=== PATIENT | female | born 2000 | race Caucasian/White ===

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

== ENCOUNTER 2020-04-23 04:03 | Inpatient (IN) | payer MEDICAID, OTHER ==
[2020-04-23] MEDS ORDERED: Oxytocin 10 Units/1 ML SDV IM ONE (04:07)
[2020-04-23] MEDS ORDERED: Carboprost Tromethamine 250 MCG/1 ML Amp IM PRN (06:33)
[2020-04-23] MEDS ORDERED: Misoprostol 400 MCG (4 X 100 MCG TAB) RECTAL PRN (06:33)
[2020-04-23] MEDS ORDERED: Methylergonovine 0.2 MG Tab PO PRN (06:33)
[2020-04-23] MEDS ORDERED: Ibuprofen 800 MG Tab PO PRN (06:33)
[2020-04-23] MEDS ORDERED: Benzocaine/Menthol 20%-0.5% Spray 56 GM Canister TOP PRN (06:33)
[2020-04-23] MEDS ORDERED: Ondansetron 4 MG Tab.DIS PO PRN (06:36)
--- NOTE | 2020-04-23 07:43 | DEL ---
DATE: 04/23/2020 TIME OF DELIVERY: 0403 hours. PREDELIVERY DIAGNOSES: 1. A 38-4/7 weeks' intrauterine based on a 5-week 6-day ultrasound. 2. 3, para 2-0-0-2. 3. History of intrauterine growth restriction, prior . 4. Anemia of . 5. Nausea and vomiting in the first trimester. 6. History of abnormal thyroid test, resolved. 7. History of precipitous deliveries. POSTPROCEDURE DIAGNOSES: 1. 38-4/7 weeks' intrauterine based on a 5-week 6-day ultrasound. 2. 3, para 3-0-0-3. 3. History of intrauterine growth restriction, prior . 4. Anemia of . 5. Nausea and vomiting in the first trimester. 6. History of abnormal thyroid test, resolved. 7. History of precipitous deliveries. 8. Precipitous delivery, attended by a nurse, physician was not in-house. BRIEF HISTORY: A 19-year-old with the above-listed diagnoses reports onset of contractions approximately 2 hours prior to delivery. She had initially called the hospital with mild contractions, which then became stronger within a 1/2 hour, and she presented at 3 cm dilated. She was moved from the triage room to the delivery room as she felt a lot more pelvic pressure and was 8 cm dilated. I was paged for delivery and walked into the delivery room right after the baby had been born and the 3-vessel umbilical cord was being doubly clamped and cut by the nurse. I then remained present for delivery of the placenta and to assess mother and baby. DELIVERY DETAILS: Delivery was a spontaneous vaginal delivery in the OA position on the bed intact attended by the nurses, Ioana Tomlin and Malini Pablo. Baby did well and was dried and stimulated. Nose and mouth were bulb suctioned, and the baby was taken over to the warmer. The bed was broken down and a 3- vessel umbilical cord verified and cord blood sample obtained. Placenta delivered by gentle cord traction and concomitant uterine massage. Labia and vagina were inspected, and there were 2 anterior lacerations that were hemostatic, small, and did not need repair, a posterior abrasion and no additional lacerations. The perineum was intact. The uterus was firm and below the umbilicus. COMPLICATIONS: None. ESTIMATED BLOOD LOSS: 200 mL. FINDINGS: Viable female ; weight 3085 g, 6 pounds 13 ounces. Baby's scores are 9 and 9. Otherwise, as above. The patient was noted to be complete at 4:02 a.m. and delivered at 4:03 a.m., and the placenta delivered at 4:07 a.m. DISPOSITION: Mother and baby are to stay in the delivery room and initiate . [facility] /[id number] MTDD
--- NOTE | 2020-04-23 08:02 | HP ---
CHIEF COMPLAINT: Increased force and frequency of contractions. HISTORY OF PRESENT ILLNESS: A 19-year-old, 3, para 2-0-0-2 currently at 38 and 4/7 weeks gestation based on 5-week 6-day ultrasound, presents to Labor and Delivery with onset of contractions approximately an hour and a half prior to arrival and feeling increased pelvic pressure. She has a history of prior with intrauterine growth restriction. Induction was planned for next week. Baby this time seems to be growing well. She has had some mild anemia of , first trimester nausea and vomiting, and an abnormal thyroid test that has resolved, and during the otherwise no specific complications. She reports prior to arrival, no leakage of fluid or vaginal bleeding. movement has been good. No fevers, chills. No symptoms of preeclampsia and overall well. After arrival, nurses reported that she was 3 cm and 100% effaced, and she was admitted as a labor patient, readily went on to 8 cm dilated and ultimately delivered within a half hour of arrival at the hospital with the nurse in attendance and physician arrived prior to delivery of the placenta. PAST MEDICAL HISTORY: 1. Ear and naval piercings, tattoo present. No IV drug use or blood transfusions. 2. Congenital cataracts. 3. History of precipitous delivery. 4. Needle phobia. PAST SURGICAL HISTORY: Cataract removal. FAMILY HISTORY: Mother with heart disease and needed an aortic valve replacement. Father with history of heart attack at age 58. Sister with no known health problems. Maternal grandmother with no known health problems. Maternal grandfather with glaucoma and alcohol abuse history. Paternal grandmother with thyroid disease, and paternal grandfather with history of glaucoma. SOCIAL HISTORY: The patient is a nonsmoker. She is living in an apartment here in [facility] [place] with her 2 children. Father of this baby is Angelo, and they have 1 dog and 2 cats in the home. She works at [employer] and he works at [employer]. He does use vape pens outside of the home and reports that he limits visual merchandising manager exposure. OBSTETRICAL HISTORY: 08/31/2016, 38 weeks 4 days gestation vaginal delivery, male , weighing 2360 g, 11-1/2 hours of induction to get her to 3 cm and then delivered within 30 minutes without complications. 01/12/2018, 37 weeks gestation, vaginal delivery, female , weighing 2240 g, vaginal delivery with epidural anesthesia in [place]. LABS: Blood type O positive, antibody screen negative. Rubella immune. Syphilis serology is nonreactive. Hepatitis B negative. HIV negative. Gonorrhea and chlamydia negative. TSH initially 0.1, spontaneously was also 1.11 on last check on December 18, 2019. Hepatitis C negative. Wet prep negative. Yeast positive on 03/12/2020. Trichomonas negative. Last hemoglobin in the office was 9.7 on 02/13/2020. Group B Strep is negative. REVIEW OF SYSTEMS: As per the history of present illness. No headaches, blurry vision, chest pain, shortness of breath, diarrhea, constipation, nausea, vomiting, extremity edema, or other acute concerns. PHYSICAL EXAMINATION: Vital Signs: Blood pressure 93/50, pulse of 57, she is afebrile, respiratory rate of 18. HEENT: Unremarkable to gross inspection. Neck: Supple without adenopathy. Heart: Regular without murmur. Lungs: Clear to auscultation bilaterally with good chest expansion. Abdomen: Soft without masses. She is now and uterus is firm and below the umbilicus. Extremities: No edema, erythema, or tenderness. Genitourinary: Bilateral anterior lacerations did not need repair. Posterior perineal area with a small abrasion and hemostatic. Skin: Warm, dry, and appropriate for race. LABORATORY DATA: Hemoglobin 10.1, and platelets 341. ASSESSMENT: 1. 38 and 4/7 weeks , now status post precipitous vaginal delivery with nurse in attendance. 2. 3, now para 3-0-0-3. 3. History of baby with IUGR. 4. Anemia of . 5. Nausea and vomiting of first trimester. 6. Abnormal thyroid, resolved during the . PLAN: At this time, normal cares will be provided. They were unable to get an IV started, and therefore IM Pitocin was used to help control any hemorrhage. She did quite well with only 200 mL of EBL. Since delivery, she has had some nausea and we will treat with some old Zofran, and then if needed we will use IM Phenergan or Reglan to help. Anticipate that she will be and normal discharge on day #1 or #2 will be anticipated. [facility] /[id number] MTDMary
[2020-04-23] MEDS: Ferrous Sulfate 325 MG Tab PO SCH ×2 (08:41→17:25)
[2020-04-23] MEDS: Prenatal Multivitamin with Calcium/Folic Acid/Iron Tab PO SCH (08:41)
[2020-04-23] MEDS: Acetaminophen 325 MG Tab PO PRN (14:55)
[2020-04-23] MEDS: Ibuprofen 800 MG Tab PO PRN (17:24)
[2020-04-23] MEDS: Docusate Sodium 100 MG Cap PO PRN (17:25)
[2020-04-24] MEDS: Ibuprofen 800 MG Tab PO PRN ×2 (01:04→11:15)
[2020-04-24] MEDS: Acetaminophen 325 MG Tab PO PRN (02:36)
[2020-04-24 11:07] VITALS: BP 94/47; PULSE 74
[2020-04-24] MEDS: Docusate Sodium 100 MG Cap PO PRN (11:14)
[2020-04-24] MEDS: Prenatal Multivitamin with Calcium/Folic Acid/Iron Tab PO SCH (11:14)
[2020-04-24] MEDS: Ferrous Sulfate 325 MG Tab PO SCH (11:18)
--- NOTE | 2020-04-25 04:11 | DISCH ---
ADMITTING DIAGNOSES: 1. 38-4/7 weeks' intrauterine based on 5-week 6-day ultrasound. 2. 3, para 2-0-0-2. 3. History of intrauterine growth restriction prior to . 4. Anemia of . 5. Severe nausea and vomiting in the first trimester. 6. Abnormal thyroid testing, resolved during her . DISCHARGE DIAGNOSES: 1. 38-4/7 weeks' intrauterine based on 5-week 6-day ultrasound. 2. 3, para 2-0-0-2. 3. History of intrauterine growth restriction prior to . 4. Anemia of . 5. Severe nausea and vomiting in the first trimester. 6. Abnormal thyroid testing, resolved during her . 7. Status post precipitous vaginal delivery attended to by the nurse. Placenta delivered by a physician. BRIEF HISTORY: A 19-year-old female presented to the hospital with increasing force and frequency of regular contractions and was initially noted to be 3 cm dilated, 100% effaced. The nurses moved her to a standard delivery room at which time she had spontaneous rupture of clear fluid and was noted to be 8 cm. Physician was paged and en route when she readily went on to a precipitous vaginal delivery with the bed intact. Nurses report no complications. Baby delivered in the OA position. Physician arrived and delivered the placenta. Labia and vagina were inspected. No posterior lacerations. Bilateral anterior lacerations that were hemostatic and therefore did not require repair. The patient essentially delivered in less than 25 minutes from presentation. HOSPITAL COURSE: Good. The patient is voiding without difficulties. Has not yet had a bowel movement. is going well. No chest pain or shortness of breath. Bleeding is well controlled, and she has no acute concerns, and is requesting early discharge. DISCHARGE CONDITION: Good. PHYSICAL EXAMINATION: Vital Signs: Temperature is 98.6, pulse 74, blood pressure 94/47, respiratory rate of 14, and O2 saturation is 100% on room air. Heart: Regular without murmur. Lungs: Clear to auscultation bilaterally. Abdomen: Soft, nontender. Fundus is firm and below the umbilicus. Extremities: No edema, erythema, or tenderness noted. LABORATORY DATA: Admission hemoglobin of 10.1 and platelets of 341. This was not rechecked. Her EBL was only estimated at 200 mL or less. PROCEDURE PERFORMED: Spontaneous vaginal delivery. DISCHARGE MEDICATIONS: Ibuprofen 800 mg every 8 hours as needed for pain, Tylenol 650 mg every 6 hours as needed for pain, Colace 100 mg twice daily as needed for constipation, iron 325 mg twice daily, vitamin C twice daily to increase absorption of the iron. FOLLOWUP: The patient will make a 6-week exam appointment when she comes in with her baby tomorrow for recheck. INSTRUCTIONS: Routine post vaginal delivery instructions for mother were provided and she verbalized understanding and all of her questions were answered. [facility] /[id number]
== END 2020-04-24 14:10 | disposition home or self-care (01) | DRG 807 ==
LOC: DL.OB 04:03
PROVIDERS: ADMIT Family Medicine; ATTEND Family Medicine
PROC: 10E0XZZ Delivery of Products of Conception, External Approach (ICD-10-PCS; principal; 2020-04-23)
DX: O99.02 Anemia complicating childbirth (principal); Z37.0 Single live birth; D64.9 Anemia, unspecified; O62.3 Precipitate labor; Z3A.38 38 weeks gestation of pregnancy; R94.6 Abnormal results of thyroid function studies; Z20.822 Contact with and (suspected) exposure to COVID-19; Z28.82 Immunization not carried out because of caregiver refusal
CPT/HCPCS: 36415; 85027; A9270-GY; J2590; U0002

== ENCOUNTER 2023-04-14 17:15 | Inpatient (IN) | payer MEDICAID ==
[2023-04-14] MEDS ORDERED: Methylergonovine 0.2 MG/1 ML Amp IM PRN (17:57)
[2023-04-14] MEDS ORDERED: Misoprostol 400 MCG (4 X 100 MCG TAB) RECTAL PRN (17:57)
[2023-04-14] MEDS ORDERED: Sodium Chloride 0.9% 10 ML Syringe FLUSH PRN (17:57)
[2023-04-14] MEDS ORDERED: Carboprost Tromethamine 250 MCG/1 ML Amp IM PRN (17:57)
[2023-04-14] MEDS ORDERED: Tranexamic Acid 1,000 MG in Sodium Chloride 0.9% 100 ML IV PRN (17:57)
[2023-04-14] MEDS ORDERED: Acetaminophen 325 MG Tab PO PRN (17:57)
[2023-04-14] MEDS: Lactated Ringers 1,000 ML IV SCH (18:10)
[2023-04-14 18:11] LABS: HEMATOCRIT 34.7 % (37.0-47.0); HEMOGLOBIN 10.9 g/dL (12.0-16.0); MEAN CORPUSCULAR HEMOGLOBIN 24.8 pg (27.0-34.0); MEAN CORPUSCULAR HGB CONC 31.4 g/dL (33.0-35.0); MEAN CORPUSCULAR VOLUME 78.9 fL (80-100); RED BLOOD CELL COUNT 4.4 10^6/uL (4.2-5.4); WHITE BLOOD CELL COUNT,WBC 12.8 10^3/uL (5.0-10.0)
[2023-04-14] MEDS: Ondansetron 4 MG/2 ML SDV IVPUSH PRN (18:33)
[2023-04-14] MEDS: Famotidine 20 MG/2 ML SDV IVPUSH ONE (19:19)
[2023-04-14] MEDS: Oxytocin/Normal Saline 30 UNIT/500 ML BAG IV SCH (19:35)
[2023-04-14] MEDS ORDERED: Oxytocin 10 Units/1 ML SDV IM PRN (19:44)
[2023-04-14] MEDS ORDERED: Benzocaine/Menthol 20%-0.5% Spray 78 GM Cannister TOP PRN (19:44)
[2023-04-14] MEDS ORDERED: Simethicone 80 MG Tab.Chew PO PRN (19:44)
[2023-04-14] MEDS ORDERED: Witch Hazel Medicated Pads 100/Jar TOP PRN (19:44)
[2023-04-14] MEDS: Ketorolac 30 MG/ML SDV IVPUSH ONE (19:58)
[2023-04-14] MEDS ORDERED: Naloxone 2 MG/2 ML Syringe IVPUSH PRN (19:59)
[2023-04-14] MEDS: fentaNYL 100 MCG/2 ML SDV IVPUSH PRN (20:12)
[2023-04-14] MEDS: Famotidine 20 MG/2 ML SDV ONE (20:15)
[2023-04-14] MEDS: Lidocaine 1% 30 ML SDV INJECT ONE (20:15)
[2023-04-14] MEDS: Lactated Ringers 1,000 ML IV ONE (20:16)
[2023-04-14] MEDS ORDERED: fentaNYL 100 MCG/2 ML SDV IVPUSH PRN (21:29)
[2023-04-14] MEDS: Dicyclomine 10 MG Cap PO ONE ×2 (22:11→22:14)
[2023-04-14] MEDS: Metoclopramide 10 MG/2 ML SDV IVPUSH ONE (22:12)
[2023-04-14] MEDS: Docusate Sodium 100 MG Cap PO PRN (22:14)
[2023-04-14] MEDS: hydrOXYzine HCl 25 MG Tab PO PRN (22:15)
[2023-04-15] MEDS: Ibuprofen 800 MG Tab PO PRN (09:13)
[2023-04-15] MEDS: Prenatal Multivitamin with Calcium/Folic Acid/Iron Tab PO SCH (09:13)
[2023-04-15] MEDS: Acetaminophen 325 MG Tab PO PRN (15:58)
[2023-04-16 13:12] VITALS: BP 118/74; PULSE 68
== END 2023-04-16 13:05 | disposition home or self-care (01) | DRG 807 ==
LOC: DL.OBCHECK 17:15 → DL.OB 17:42 → UNDOADMOB 17:42 → DL.OB 17:57 → OBSVTOIN 19:30 → DL.OB 19:30
PROVIDERS: ADMIT Family Medicine; ATTEND Family Medicine
PROC: 10E0XZZ Delivery of Products of Conception, External Approach (ICD-10-PCS; principal; 2023-04-14)
DX: O99.02 Anemia complicating childbirth (principal); Z37.0 Single live birth; Z3A.38 38 weeks gestation of pregnancy
CPT/HCPCS: 36415; 59409; 85027; A9270-GY; J1885; J2405; J2590; J2765; J3010; J3490; J7120